=== PATIENT | female | born 1965 | race African-American/Black ===

== ENCOUNTER 2019-07-03 10:47 | Outpatient (CLI) | payer OTHER ==
--- NOTE | 2019-07-03 11:37 | MMO ---
Bilateral MAMMO Bilat Screen [facility]. CLINICAL HISTORY: Patient is 53 years old and is seen for screening. The patient has no family history of breast cancer. The patient has no personal history of cancer. VIEWS: The views performed were: bilateral craniocaudal with tomosynthesis; bilateral mediolateral oblique with tomosynthesis; and bilateral exaggerated craniocaudal with tomosynthesis. This study has been interpreted with the assistance of computer-aided detection. MAMMOGRAM FINDINGS: There are scattered fibroglandular densities. There are no suspicious masses, suspicious calcifications, or new areas of architectural distortion. IMPRESSION: THERE IS NO MAMMOGRAPHIC EVIDENCE OF MALIGNANCY. A ROUTINE FOLLOW-UP MAMMOGRAM IN 1 YEAR IS RECOMMENDED. THE RESULTS OF THIS EXAM WERE SENT TO THE PATIENT. ACR BI-RADS Category 1 - Negative MAMMOGRAPHY NOTE: 1. A negative mammogram report should not delay a biopsy if a dominant of clinically suspicious mass is present. 2. Approximately 10% to 15% of breast cancers are not detected by mammography. 3. Adenosis and dense breasts may obscure an underlying neoplasm. Reported by: MEREDITH MOHAMUD MD Electonically Signed: [id number]
--- NOTE | 2019-07-03 13:14 | ULT ---
PELVIC ULTRASOUND WITH DOPPLER EVALUATION OF THE BILATERAL OVARIES: HISTORY: Pelvic pain. FINDINGS: Transabdominal and endovaginal sonographic images of the pelvis are obtained. Uterus and adnexal reg ions are not well seen on transabdominal imaging. On endovaginal imaging, the uterus demonstrates mi ld heterogeneity without focal lesion seen. The endometrial stripe measures approximately 7 mm, whic h is thickened for a postmenopausal female patient. No fluid or fluid collection is seen in the endo metrial canal. The ovaries demonstrate a normal sonographic appearance bilaterally. Doppler evaluation with spectra l analysis demonstrates arterial flow in each ovary. No free fluid is seen in the cul-de-sac. IMPRESSION: Endometrial stripe thickness measuring 7 mm. This would be within normal limits for a normal menstru ating female patient but would be abnormal in a postmenopausal female patient. If the patient is pos tmenopausal, [employer] consultation is recommended. Thickening of the endometrial stripe could be relat ed to endometrial hyperplasia or neoplastic process. POS: [facility]
== END 2019-07-03 10:48 | disposition home or self-care (01) ==
LOC: BICMAMMO 10:47
PROVIDERS: ATTEND Internal Medicine
DX: Z12.31 Encounter for screening mammogram for malignant neoplasm of breast (principal); R10.2 Pelvic and perineal pain; R93.89 Abnormal findings on diagnostic imaging of other specified body structures
CPT/HCPCS: 76856; 77063; 77067

== ENCOUNTER 2020-06-16 15:56 | Emergency (ER) | payer OTHER ==
[2020-06-16] MEDS ORDERED: diphenhydrAMINE 25 MG CAP ONE (16:38)
== END 2020-06-16 16:54 | disposition home or self-care (01) ==
LOC: ERS 15:56
DX: L29.9 Pruritus, unspecified (principal); F17.210 Nicotine dependence, cigarettes, uncomplicated
CPT/HCPCS: 99283; Q0163